=== PATIENT | female | born 1985 | race Two or more races ===

== ENCOUNTER 2023-05-05 20:00 | Inpatient (IN) | payer OTHER ==
[~2023-05-05] VITALS: Ht 154.9 cm; Wt 59.0 kg
[2023-05-05 23:42] LABS: HEMATOCRIT 38.7 % (36.0-45.00); HEMOGLOBIN 13.1 g/dL (12.0-15.00); MEAN CELL VOLUME 92.1 fL (80.00-100.00); MEAN CORPUSCULAR HEMOGLOBIN 31.2 pg (27.00-32.0); MEAN CORPUSCULAR HGB CONC 33.9 g/dl (32.0-36.0); PLATELET COUNT 424 K/uL (150-450); RED CELL DISTRIBUTION WIDTH 13.7 % (11.5-14.5)
[2023-05-06 00:01] LABS: CALCIUM 9.2 mg/dL (8.5-10.1); CREATININE SERUM 0.81 mg/dL (0.55-1.02); GFR 78.31; POTASSIUM 3.06 mEq/L (3.5-5.1)
[2023-05-06 08:22] LABS: INR 1.11; PROTHROMBIN TIME 11.6 SECONDS (9.0-11.5)
[2023-05-07 06:42] LABS: HEMATOCRIT 33.5 % (36.0-45.00); HEMOGLOBIN 11.4 g/dL (12.0-15.00); MEAN CORPUSCULAR HEMOGLOBIN 31.1 pg (27.00-32.0); MEAN CORPUSCULAR HGB CONC 34.1 g/dl (32.0-36.0); PLATELET COUNT 373 K/uL (150-450); RED BLOOD COUNT 3.68 M/uL (4.00-6.00); RED CELL DISTRIBUTION WIDTH 13.6 % (11.5-14.5)
[2023-05-07 07:17] LABS: ALBUMIN 2.8 gm/dL (3.4-5.0); CALCIUM 8.2 mg/dL (8.5-10.1); CREATININE SERUM 0.54 mg/dL (0.55-1.02); GFR 125.04; MAGNESIUM 1.9 mg/dL (1.8-2.4); PHOSPHOROUS 2.6 mg/dL (2.5-4.9); POTASSIUM 4.28 mEq/L (3.5-5.1)
== END 2023-05-07 14:44 | disposition home or self-care (01) | DRG 349 ==
LOC: ER 20:00 → SEC-K 05-06 09:22 → SURG 05-06 09:22
PROVIDERS: General Practice; ADMIT Colon & Rectal Surgery; ATTEND Colon & Rectal Surgery
PROC: BW21Y0Z Computerized Tomography (CT Scan) of Abdomen and Pelvis using Other Contrast, Unenhanced and Enhanced (ICD-10-PCS; 2023-05-06)
PROC: 0D9Q7ZZ Drainage of Anus, Via Natural or Artificial Opening (ICD-10-PCS; principal; 2023-05-06 21:30)
DX: K61.0 Anal abscess (principal); Z20.822 Contact with and (suspected) exposure to COVID-19

== ENCOUNTER 2023-06-25 09:30 | Day surgery (SDC) | payer OTHER ==
[~2023-06-25] VITALS: Ht 154.9 cm; Wt 58.1 kg
== END 2023-06-25 17:45 | disposition home or self-care (01) ==
LOC: CIR.AMB 09:30
PROVIDERS: ATTEND Colon & Rectal Surgery
DX: K60.3 Anal fistula (principal); K59.00 Constipation, unspecified; Z20.822 Contact with and (suspected) exposure to COVID-19

== ENCOUNTER → 2023-09-03 | Day surgery (SDC) | payer OTHER ==
[~2023-09-03] MED LIST: BUPIVACAINE HCL 30 ML VIAL IJ ONE; CEFTRIAXONE SODIUM 2,000 MG VIAL IV ONE; CEFTRIAXONE SODIUM 2,000 MG VIAL ONE; DIBUCAINE 15 GM OINT..GM. TUBE RECTAL ONE; DIBUCAINE 30 GM TUBE ONE; HEMOSTATIC MATRIX 1 KIT KIT TOP ONE; LIDOCAINE HCL 1%/Epi 20ML VIAL IJ ONE; METRONIDAZOLE/SODIUM CHLORIDE 500 MG/100 ML PIGGYBACK IV ONE; POVIDONE-IODINE 118 ML BOTT TOP ONE
== END | disposition home or self-care (01) ==
LOC: ADM 08-20 11:30 → CIR.AMB 07:06
PROVIDERS: ATTEND Colon & Rectal Surgery
DX: K60.3 Anal fistula (principal); K64.8 Other hemorrhoids

== ENCOUNTER 2024-08-21 07:10 | Day surgery (SDC) | payer OTHER ==
[2024-08-11 13:27] VITALS: BP 137/79
[~2024-08-21] VITALS: Ht 152.4 cm; Wt 60.8 kg
[2024-08-21] MEDS ORDERED: POVIDONE-IODINE 118 ML BOTT TOP ONE (11:30)
[2024-08-21] MEDS ORDERED: DIBUCAINE 30 GM TUBE ONE (11:30)
[2024-08-21] MEDS ORDERED: BUPIVACAINE HCL/MPF 0.5% 30ML VIAL ONE (11:30)
[2024-08-21] MEDS ORDERED: HEMOSTATIC MATRIX 1 KIT KIT TOP ONE (11:31)
[2024-08-21] MEDS ORDERED: LIDOCAINE HCL 1%/EPINEPHRINE 20ML VIAL IJ ONE (11:31)
[2024-08-21] MEDS ORDERED: CEFTRIAXONE SODIUM 2,000 MG VIAL ONE (11:37)
[2024-08-21] MEDS ORDERED: METRONIDAZOLE/SODIUM CHLORIDE 500 MG/100 ML PIGGYBACK IV ONE (11:38)
[2024-08-21] MEDS ORDERED: HYDROGEN PEROXIDE 473 ML BOTTLE TOP ONE (11:53)
== END 2024-08-21 16:45 | disposition home or self-care (01) ==
LOC: CIR.AMB 07:10
PROVIDERS: ATTEND Colon & Rectal Surgery
DX: K60.313 Anal fistula, simple, recurrent (principal)

== ENCOUNTER 2024-09-02 10:29 | Inpatient (IN) | payer OTHER ==
[~2024-09-02] VITALS: Ht 157.5 cm; Wt 60.8 kg
--- NOTE | 2024-09-02 10:48 | NUR ---
PTE ALERTA Y ORIENTADA X3, SE JAMES S/V. 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 PTE REFIERE TENER DOLOR EN AREA DONDE FUE OPERADA. SE UBICA EN PASILLO AREA DE OBSERVACION.
[2024-09-02] MEDS ORDERED: KETOROLAC TROMETHAMINE 30 MG VIAL IM ONE (11:45)
[2024-09-02] MEDS ORDERED: KETOROLAC TROMETHAMINE 30 MG VIAL ONE (11:58)
--- NOTE | 2024-09-02 12:11 | NUR ---
PACIENTE ALERTA Y ORIENTADA X3. SE EDUCA A PACIENTE SOBRE ADMINISTRACION DE MEDICAMENTOS, REFIERE ENTENDER. SE EJECUTAN ORDENES BAJO MEDIDAS ASEPTICAS.
[2024-09-02] MEDS ORDERED: TRAMADOL HCL 50 MG TABLET PO ONE (12:45)
--- NOTE | 2024-09-02 13:03 | NUR ---
PACIENTE ALERTA Y ORIENTADA X3. SE EDUCA A PACIENTE SOBRE XENA DE MUESTRAS, CANALIZACION Y ADMINISTRACION DE MEDICAMENTOS, REFIERE ENTENDER. SE EJECUTAN ORDENES BAJO MEDIDAS ASEPTICAS. PENDIENTE A CT.
[2024-09-02 13:28] LABS: HEMOGLOBIN 12.4 g/dL (12.0-15.00); MEAN CELL VOLUME 90.6 fL (80.00-100.00); MEAN CORPUSCULAR HEMOGLOBIN 29.4 pg (27.00-32.0); MEAN CORPUSCULAR HGB CONC 32.5 g/dl (32.0-36.0); PLATELET COUNT 310 K/uL (150-450); RED CELL DISTRIBUTION WIDTH 15.1 % (11.5-14.5)
[2024-09-02 13:43] LABS: CALCIUM 9.3 mg/dL (8.5-10.1); CREATININE SERUM 0.72 mg/dL (0.55-1.02); GFR 89.26; POTASSIUM 4.76 mEq/L (3.5-5.1)
[2024-09-02] MEDS ORDERED: PIPERACILLIN/TAZOBACTAM SODIUM 3.375 GM VIAL IV ONE ×2 (16:00→16:10)
[2024-09-02] MEDS ORDERED: ACETAMINOPHEN 500 MG GEL..CAP PO STA (16:48)
[2024-09-02] MEDS ORDERED: TRAMADOL HCL 50 MG TABLET PO PRN (17:00)
[2024-09-02] MEDS ORDERED: FAMOTIDINE/PF 20 MG/2 ML VIAL IV SCH (17:00)
[2024-09-02] MEDS ORDERED: ACETAMINOPHEN 500 MG GEL..CAP PO ONE (17:11)
[2024-09-02] MEDS ORDERED: 0.9 % SODIUM CHLORIDE 1,000 ML IV SCH ×2 (17:15→17:45)
[2024-09-02] MEDS ORDERED: PIPERACILLIN/TAZOBACTAM SODIUM 3.375 GM in DEXTROSE 5 % IN WATER 100 ML IV SCH (18:00)
[2024-09-02] MEDS ORDERED: ACETAMINOPHEN 500 MG GEL..CAP PO SCH (18:00)
[2024-09-02] MEDS ORDERED: FAMOTIDINE/PF 20 MG/2 ML VIAL ONE (18:51)
[2024-09-02 19:56] LABS: PH,URINE 5.5 (5.0-8.0); URINE APPEARANCE Clear; URINE BILIRRUBIN Negative (NEGATIVE); URINE BLOOD Negative; URINE COLOR Yellow; URINE KETONE Trace (NEGATIVE); URINE LEUKOCYTE Negative; URINE NITRATE Negative; URINE PROTEIN 30 (NEGATIVE); URINE UROBILINOGEN 0.2 E.U./dl
[2024-09-02 20:22] LABS: INR 1.11; PARTIAL THROMBOPLASTIN TIME 31.3 SECONDS (22.0-34.0)
[2024-09-02 20:47] LABS: URINE GLUCOSE 100 MG/DL (NEGATIVE)
[2024-09-02 20:50] LABS: URINE EPITHELIAL CELLS LOADED /HPF; URINE WBC 0-2 /hpf
[2024-09-02 20:51] LABS: URINE BACTERIA FEW; URINE MUCUS SCANT
[2024-09-02 21:00] VITALS: BP 108/69; O2SAT 97
[2024-09-03] VITALS: BP 112/68; O2SAT 100
[2024-09-03 07:28] LABS: CALCIUM 8.4 mg/dL (8.5-10.1); CREATININE SERUM 0.76 mg/dL (0.55-1.02); GFR 83.86; MAGNESIUM 1.7 mg/dL (1.8-2.4); POTASSIUM 3.63 mEq/L (3.5-5.1)
[2024-09-03] MEDS ORDERED: POVIDONE-IODINE 118 ML BOTT TOP ONE ×2 (07:43→08:00)
[2024-09-03] MEDS ORDERED: LIDOCAINE HCL 1%/EPINEPHRINE 20ML VIAL IJ ONE ×2 (07:43→08:00)
[2024-09-03] MEDS ORDERED: BUPIVACAINE HCL/MPF 0.5% 30ML VIAL ONE (07:43)
[2024-09-03] MEDS ORDERED: HYDROGEN PEROXIDE 118 ML SOLUTION TOP ONE (08:00)
[2024-09-03] MEDS ORDERED: BUPIVACAINE HCL 30 ML VIAL IJ ONE (08:00)
[2024-09-03] MEDS ORDERED: HYDROGEN PEROXIDE 473 ML BOTTLE TOP ONE (08:13)
[2024-09-03 08:18] LABS: HEMOGLOBIN 11.3 g/dL (12.0-15.00); MEAN CELL VOLUME 90.4 fL (80.00-100.00); MEAN CORPUSCULAR HGB CONC 33.2 g/dl (32.0-36.0); RED BLOOD COUNT 3.77 M/uL (4.00-6.00)
[2024-09-03 08:24] LABS: PLATELET COUNT 267 K/uL (150-450)
[2024-09-03] MEDS ORDERED: MORPHINE SULFATE 4 MG/ML CARTRIDGE IV PRN (09:00)
[2024-09-03] MEDS ORDERED: TRAMADOL HCL 50 MG TABLET PO PRN (09:01)
[2024-09-03] MEDS ORDERED: ONDANSETRON HCL 4 MG in 0.9 % SODIUM CHLORIDE 50 ML IV PRN (09:15)
[2024-09-03] MEDS ORDERED: MAGNESIUM SULFATE IN WATER 2 GM/50 ML PIGGYBAG IV NR (10:15)
[2024-09-03 11:20] VITALS: BP 109/68; O2SAT 99
[2024-09-03] MEDS ORDERED: NAPH,MB-DB/K PH,MBDB 1 PKT PACKET PO SCH (13:00)
[2024-09-03 16:00] VITALS: BP 103/65; O2SAT 97
[2024-09-03] MEDS ORDERED: ENOXAPARIN SODIUM 40 MG/0.4 ML SYRINGE SUBCUTANEO SCH (17:00)
[2024-09-03] MEDS ORDERED: GABAPENTIN 300 MG CAPSULE PO SCH (17:00)
[2024-09-03] MEDS ORDERED: POLYETHYLENE GLYCOL 3350 17 GM BLIST.PACK PO SCH (17:00)
[2024-09-04 00:15] VITALS: BP 112/70; O2SAT 97
[2024-09-04 07:02] LABS: HEMATOCRIT 32.2 % (36.0-45.00); HEMOGLOBIN 10.7 g/dL (12.0-15.00); MEAN CELL VOLUME 90.3 fL (80.00-100.00); MEAN CORPUSCULAR HEMOGLOBIN 29.9 pg (27.00-32.0); MEAN CORPUSCULAR HGB CONC 33.1 g/dl (32.0-36.0); PLATELET COUNT 247 K/uL (150-450); RED BLOOD COUNT 3.57 M/uL (4.00-6.00); RED CELL DISTRIBUTION WIDTH 15.1 % (11.5-14.5)
[2024-09-04 07:18] LABS: ALBUMIN 2.7 gm/dL (3.4-5.0); CALCIUM 8.1 mg/dL (8.5-10.1); CREATININE SERUM 0.59 mg/dL (0.55-1.02); GFR 112.32; PHOSPHOROUS 3.1 mg/dL (2.5-4.9); POTASSIUM 3.71 mEq/L (3.5-5.1)
[2024-09-04 08:00] VITALS: BP 112/73; O2SAT 99
[2024-09-04] MEDS ORDERED: LACTOBACILLUS ACIDOPHILUS 1 CAP CAP PO SCH (09:00)
[2024-09-04] MEDS ORDERED: ENOXAPARIN SODIUM 40 MG/0.4 ML SYRINGE SUBCUTANEO SCH (17:00)
[2024-09-04 17:42] VITALS: BP 133/83; O2SAT 98
[2024-09-05 00:07] VITALS: BP 123/78; O2SAT 99
[2024-09-05 08:00] VITALS: BP 116/68; O2SAT 97
[2024-09-05] MEDS ORDERED: ZINC OXIDE 30 GM TUBE TOP SCH (09:00)
[2024-09-05] MEDS ORDERED: DIATRIZOATE MEGLUMINE, SODIUM 30 ML BOTTLE PO STA (11:19)
[2024-09-05] MEDS ORDERED: DEXTROSE 5%-WATER 100ML IV.SOLN ONE (11:20)
[2024-09-05 16:00] VITALS: BP 131/82; O2SAT 100
[2024-09-06] VITALS: BP 115/72; O2SAT 100
== END 2024-09-06 09:20 | disposition home or self-care (01) | DRG 346 ==
LOC: ER 10:30 → SURH 18:14
PROVIDERS: Colon & Rectal Surgery; General Practice; ADMIT Internal Medicine; ATTEND Internal Medicine
PROC: BW21YZZ Computerized Tomography (CT Scan) of Abdomen and Pelvis using Other Contrast (ICD-10-PCS; 2024-09-02)
PROC: 0DBQ7ZZ Excision of Anus, Via Natural or Artificial Opening (ICD-10-PCS; 2024-09-03)
PROC: 0D9P7ZZ Drainage of Rectum, Via Natural or Artificial Opening (ICD-10-PCS; principal; 2024-09-03 08:00)
PROC: BW21ZZZ Computerized Tomography (CT Scan) of Abdomen and Pelvis (ICD-10-PCS; 2024-09-05)
DX: K60.321 Anal fistula, complex, initial (principal); Z48.03 Encounter for change or removal of drains; K62.89 Other specified diseases of anus and rectum

== ENCOUNTER 2024-11-03 06:14 | Day surgery (SDC) | payer OTHER ==
[2024-10-27 12:21] VITALS: BP 115/78
[~2024-11-03] VITALS: Ht 157.5 cm; Wt 59.9 kg
[2024-11-03] MEDS ORDERED: POVIDONE-IODINE 118 ML BOTT TOP ONE (10:06)
[2024-11-03] MEDS ORDERED: LIDOCAINE HCL 1%/EPINEPHRINE 20ML VIAL IJ ONE (10:06)
[2024-11-03] MEDS ORDERED: HEMOSTATIC MATRIX 1 KIT KIT TOP ONE (10:06)
[2024-11-03] MEDS ORDERED: DIBUCAINE 30 GM TUBE ONE (10:06)
[2024-11-03] MEDS ORDERED: BUPIVACAINE HCL/MPF 0.5% 30ML VIAL ONE (10:06)
[2024-11-03] MEDS ORDERED: CEFTRIAXONE SODIUM 2,000 MG VIAL ONE (10:07)
[2024-11-03] MEDS ORDERED: METRONIDAZOLE/SODIUM CHLORIDE 500 MG/100 ML PIGGYBACK IV ONE (10:07)
[2024-11-03] MEDS ORDERED: HYDROGEN PEROXIDE 473 ML BOTTLE TOP ONE (11:25)
== END 2024-11-03 13:50 | disposition home or self-care (01) ==
LOC: CIR.AMB 06:14
PROVIDERS: ATTEND Colon & Rectal Surgery
DX: K60.321 Anal fistula, complex, initial (principal); L92.9 Granulomatous disorder of the skin and subcutaneous tissue, unspecified

== ENCOUNTER 2025-01-28 17:43 | Inpatient (IN) | payer OTHER ==
[~2025-01-28] VITALS: Ht 157.5 cm; Wt 58.5 kg
[2025-01-28] MEDS ORDERED: CLINDAMYCIN PHOSPHATE 150 MG/ML (600mg) IV ONE (19:45)
[2025-01-28] MEDS ORDERED: CLINDAMYCIN PHOSPHATE 150 MG/ML (300mg) ONE (20:07)
[2025-01-28 20:39] LABS: BASO % 0.4 % (0.1-1.2); EOS # 0.11 (0.04-0.54); EOS % 1.1 % (0.7-7.0); LYMPH # 1.90 (1.18-3.74); LYMPH % 19.2 % (19.3-53.1); MEAN PLATELET VOLUME 9.60 fl (9.4-12.4); MONO # 0.54 (0.24-0.82); MONO % 5.4 % (4.7-12.5); NEUT # 7.30 (1.56-6.13); NEUT % 73.7 % (34.0-71.1); RED CELL DISTRIBUTION WIDTH 12.6 % (11.6-14.4)
[2025-01-28 21:11] LABS: BUN CREA RATIO 19.0 (7.0-25.0); CREATININE SERUM 0.74 mg/dL (0.55-1.02); GFR 86.49; GLUCOSE FASTING 87.0 mg/dL (65-100); OSMOLALITY SERUM 277.0 MOSM/KG (275-295)
[2025-01-28] MEDS ORDERED: VANCOMYCIN HCL 1,000 MG VIAL IV ONE (23:45)
[2025-01-29] MEDS ORDERED: RINGERS SOLUTION,LACTATED 1,000 ML IV SCH (00:15)
[2025-01-29] MEDS ORDERED: VANCOMYCIN HCL 1,000 MG VIAL ONE ×3 (01:09→23:30)
[2025-01-29 01:10] LABS: INR 1.05
[2025-01-29 01:15] LABS: ALT/SGPT 23.0 U/L (12-78); AST/SGOT 23.0 U/L (15-37); BILIRUBIN TOTAL 0.42 mg/dL (0.3-1.2); BUN CREA RATIO 17.0 (7.0-25.0); CREATININE SERUM 0.72 mg/dL (0.55-1.02); GLOBULINA 4.7 G/DL (2.4-3.5); GLUCOSE FASTING 99.0 mg/dL (65-100); OSMOLALITY SERUM 277.0 MOSM/KG (275-295)
[2025-01-29 01:17] LABS: GFR 89.26
[2025-01-29 01:27] VITALS: BP 128/77; O2SAT 99
[2025-01-29 01:35] LABS: URINE APPEARANCE Clear; URINE BILIRRUBIN Negative (NEGATIVE); URINE BLOOD Negative; URINE COLOR Yellow; URINE GLUCOSE Negative (NEGATIVE); URINE KETONE Negative (NEGATIVE); URINE LEUKOCYTE Negative; URINE NITRATE Negative; URINE PROTEIN Negative (NEGATIVE); URINE UROBILINOGEN 0.2 E.U./dl
[2025-01-29 01:39] LABS: URINE BACTERIA 909.5 uL (0.0-1933); URINE EPITHELIAL CELLS 63.9 uL (0.0-38.8); URINE RBC 3.9 uL (0.0-20.8); URINE WBC 24.9 uL (0.0-23.2)
[2025-01-29 01:40] LABS: URINE CAST 0.14 uL (0.0-1.40)
[2025-01-29 07:46] VITALS: BP 115/66; O2SAT 98
[2025-01-29] MEDS ORDERED: VANCOMYCIN HCL 1,000 MG VIAL IV STA (14:27)
[2025-01-29] MEDS ORDERED: MORPHINE SULFATE 4 MG/ML CARTRIDGE IV PRN (14:30)
[2025-01-29] MEDS ORDERED: ONDANSETRON HCL 2 MG/ML VIAL IV PRN (14:30)
[2025-01-29] MEDS ORDERED: ENOXAPARIN SODIUM 40 MG/0.4 ML SYRINGE SUBCUTANEO SCH (14:52)
[2025-01-29 16:34] VITALS: BP 101/67; BP 99/63; O2SAT 98; O2SAT 99
[2025-01-29] MEDS ORDERED: VANCOMYCIN HCL 1,000 MG VIAL IV SCH (17:00)
[2025-01-29] MEDS ORDERED: FAMOTIDINE/PF 20 MG/2 ML VIAL IV SCH (21:00)
[2025-01-29] MEDS ORDERED: CIPROFLOXACIN IN 5 % DEXTROSE 200 ML IV SCH (21:00)
[2025-01-29] MEDS ORDERED: ACETAMINOPHEN 500 MG GEL..CAP PO PRN (23:45)
[2025-01-30 00:16] VITALS: BP 105/65; O2SAT 98
[2025-01-30 05:58] LABS: BASO % 0.7 % (0.1-1.2); EOS # 0.17 (0.04-0.54); EOS % 2.8 % (0.7-7.0); LYMPH # 2.02 (1.18-3.74); LYMPH % 33.6 % (19.3-53.1); MEAN PLATELET VOLUME 9.50 fl (9.4-12.4); MONO # 0.62 (0.24-0.82); MONO % 10.3 % (4.7-12.5); NEUT # 3.14 (1.56-6.13); NEUT % 52.3 % (34.0-71.1); RED CELL DISTRIBUTION WIDTH 13.0 % (11.6-14.4)
[2025-01-30 07:13] LABS: BUN CREA RATIO 13.0 (7.0-25.0); CREATININE SERUM 0.7 mg/dL (0.55-1.02); GFR 92.21; GLUCOSE FASTING 85.0 mg/dL (65-100); OSMOLALITY SERUM 281.0 MOSM/KG (275-295)
[2025-01-30 08:06] VITALS: BP 109/73; O2SAT 97
[2025-01-30] MEDS ORDERED: LACTOBACILLUS ACIDOPHILUS 1 CAP CAP PO SCH (09:00)
[2025-01-30] MEDS ORDERED: MEROPENEM 500 MG/VIAL VIAL IV SCH (14:00)
[2025-01-30] MEDS ORDERED: VANCOMYCIN HCL 1,000 MG VIAL ONE ×2 (14:37→23:44)
[2025-01-30 17:00] VITALS: BP 116/76; O2SAT 99
[2025-01-31 01:42] VITALS: BP 107/65; O2SAT 99
[2025-01-31 08:00] VITALS: BP 114/78; O2SAT 99
[2025-01-31] MEDS ORDERED: VANCOMYCIN HCL 1,000 MG VIAL ONE ×2 (14:23→16:02)
[2025-01-31] MEDS ORDERED: VANCOMYCIN HCL 5 MG/ML REDILUIDO IV SCH (17:00)
[2025-01-31 18:00] VITALS: BP 109/72; O2SAT 98
[2025-02-01 01:49] VITALS: BP 109/72; O2SAT 100
[2025-02-01 06:45] LABS: BASO % 0.7 % (0.1-1.2); EOS # 0.35 (0.04-0.54); EOS % 5.1 % (0.7-7.0); LYMPH # 2.31 (1.18-3.74); LYMPH % 33.5 % (19.3-53.1); MEAN PLATELET VOLUME 9.60 fl (9.4-12.4); MONO # 0.58 (0.24-0.82); MONO % 8.4 % (4.7-12.5); NEUT # 3.58 (1.56-6.13); NEUT % 51.9 % (34.0-71.1); RED CELL DISTRIBUTION WIDTH 12.6 % (11.6-14.4)
[2025-02-01 07:30] LABS: BUN CREA RATIO 13.0 (7.0-25.0); CREATININE SERUM 0.76 mg/dL (0.55-1.02); GFR 83.86; GLUCOSE FASTING 82.0 mg/dL (65-100); OSMOLALITY SERUM 283.0 MOSM/KG (275-295)
[2025-02-01 08:28] VITALS: BP 114/70; O2SAT 99
[2025-02-01] MEDS ORDERED: CIPROFLOXACIN IN 5 % DEXTROSE 400 MG/200 ML PIGGYBAG IV SCH (17:00)
[2025-02-01 17:32] VITALS: BP 121/81; O2SAT 99
[2025-02-01] MEDS ORDERED: AMPICILLIN SODIUM/SULBACTAM NA 3,000 MG VIAL IV SCH (18:00)
[2025-02-02 01:59] VITALS: BP 123/79; O2SAT 100
[2025-02-02 08:24] VITALS: BP 120/80; O2SAT 100
[2025-02-02 17:50] VITALS: BP 128/81; O2SAT 99
[2025-02-02] MEDS ORDERED: PIPERACILLIN/TAZOBACTAM SODIUM 4.5 GM VIAL IV SCH (21:00)
[2025-02-03 01:21] VITALS: BP 132/79; O2SAT 98
[2025-02-03 08:05] VITALS: BP 119/77; O2SAT 99
[2025-02-03 16:00] VITALS: BP 148/89; O2SAT 99
[2025-02-04 00:15] VITALS: BP 127/73; O2SAT 99
[2025-02-04 07:47] LABS: BASO % 0.8 % (0.1-1.2); EOS # 0.24 (0.04-0.54); EOS % 3.6 % (0.7-7.0); LYMPH # 2.31 (1.18-3.74); LYMPH % 34.9 % (19.3-53.1); MEAN PLATELET VOLUME 9.70 fl (9.4-12.4); MONO # 0.39 (0.24-0.82); MONO % 5.9 % (4.7-12.5); NEUT # 3.63 (1.56-6.13); NEUT % 54.8 % (34.0-71.1); RED CELL DISTRIBUTION WIDTH 12.7 % (11.6-14.4)
[2025-02-04 08:09] LABS: BUN CREA RATIO 15.0 (7.0-25.0); CREATININE SERUM 0.71 mg/dL (0.55-1.02); GFR 90.72; GLUCOSE FASTING 72.0 mg/dL (65-100); OSMOLALITY SERUM 285.0 MOSM/KG (275-295)
[2025-02-04 08:33] VITALS: BP 123/77; O2SAT 99
[2025-02-04] MEDS ORDERED: SODIUM CHLORIDE 0.45 % 1,000 ML IV SCH (09:00)
[2025-02-04 23:57] VITALS: BP 117/76; O2SAT 98
[2025-02-05 08:29] VITALS: BP 123/73; O2SAT 99
[2025-02-05] MEDS ORDERED: TRAMADOL HCL 50 MG TABLET PO STA (15:01)
[2025-02-05] MEDS ORDERED: TRAMADOL HCL 50 MG TABLET PO PRN (15:15)
[2025-02-05 16:00] VITALS: BP 124/68; O2SAT 99
[2025-02-06 01:02] VITALS: BP 101/66; O2SAT 100
[2025-02-06 09:01] VITALS: BP 111/74; O2SAT 99
== END 2025-02-06 13:12 | disposition home or self-care (01) | DRG 394 ==
LOC: ER 17:51 → SURH 01-29 00:10
PROVIDERS: Emergency Medicine; ADMIT Colon & Rectal Surgery; ATTEND Colon & Rectal Surgery
PROC: BW21YZZ Computerized Tomography (CT Scan) of Abdomen and Pelvis using Other Contrast (ICD-10-PCS; principal; 2025-01-28)
PROC: 02HV33Z Insertion of Infusion Device into Superior Vena Cava, Percutaneous Approach (ICD-10-PCS; 2025-02-05)
DX: K61.1 Rectal abscess (principal); L03.90 Cellulitis, unspecified; B96.1 Klebsiella pneumoniae [K. pneumoniae] as the cause of diseases classified elsewhere

== ENCOUNTER 2025-03-24 18:54 | Inpatient (IN) | payer OTHER ==
[~2025-03-24] VITALS: Ht 152.4 cm; Wt 56.7 kg
[2025-03-24] MEDS ORDERED: PIPERACILLIN/TAZOBACTAM SODIUM 3.375 GM in DEXTROSE 5 % IN WATER 100 ML IV SCH (20:24)
[2025-03-24] MEDS ORDERED: 0.9 % SODIUM CHLORIDE 1,000 ML IV SCH (20:30)
[2025-03-24] MEDS ORDERED: KETOROLAC TROMETHAMINE 30 MG VIAL IU ONE (20:30)
[2025-03-24] MEDS ORDERED: FAMOtidine 10 MG/ML (4ML VIAL) IV PUSH ONE (20:30)
[2025-03-24] MEDS ORDERED: ACETAMINOPHEN 500 MG GEL..CAP PO ONE (20:30)
[2025-03-24 21:08] LABS: BASO % 0.6 % (0.1-1.2); EOS # 0.13 (0.04-0.54); EOS % 1.7 % (0.7-7.0); LYMPH # 1.86 (1.18-3.74); LYMPH % 23.9 % (19.3-53.1); MEAN PLATELET VOLUME 9.20 fl (9.4-12.4); MONO # 0.58 (0.24-0.82); MONO % 7.5 % (4.7-12.5); NEUT # 5.13 (1.56-6.13); NEUT % 66.0 % (34.0-71.1); RED CELL DISTRIBUTION WIDTH 12.9 % (11.6-14.4)
[2025-03-24 21:27] LABS: INR 1.08
[2025-03-24 21:50] LABS: ERYTHROCYTE SEDIMENTATION RATE 16 mm/hr (0-20)
[2025-03-24 22:34] LABS: URINE APPEARANCE Clear; URINE BILIRRUBIN Negative (NEGATIVE); URINE BLOOD Negative; URINE COLOR Yellow; URINE GLUCOSE Negative (NEGATIVE); URINE KETONE Negative (NEGATIVE); URINE LEUKOCYTE Negative; URINE NITRATE Negative; URINE PROTEIN Negative (NEGATIVE); URINE UROBILINOGEN 0.2 E.U./dl
[2025-03-24 22:37] LABS: URINE BACTERIA 7.1 uL (0.0-1933); URINE EPITHELIAL CELLS 6.2 uL (0.0-38.8); URINE WBC 1.9 uL (0.0-23.2)
[2025-03-24 22:50] LABS: URINE CAST 0.29 uL (0.0-1.40); URINE RBC 1.7 uL (0.0-20.8)
[2025-03-24 23:14] LABS: ALT/SGPT 20 U/L (12-78); AST/SGOT 15 U/L (15-37); BILIRUBIN TOTAL 0.26 mg/dL (0.3-1.2); BUN CREA RATIO 23 (7.0-25.0); CREATININE SERUM 0.75 mg/dL (0.55-1.02); GFR 84.74; GLOBULINA 3.5 G/DL (2.4-3.5); GLUCOSE FASTING 93 mg/dL (65-100); HCG QUANTITATIVE < 1 mUI/mL (1-3); OSMOLALITY SERUM 284 MOSM/KG (275-295)
[2025-03-24] MEDS ORDERED: KETOROLAC TROMETHAMINE 30 MG VIAL IU PRN (23:45)
[2025-03-24] MEDS ORDERED: ACETAMINOPHEN 325 MG TABLET PO PRN (23:45)
[2025-03-24] MEDS ORDERED: ONDANSETRON HCL 4 MG in 0.9 % SODIUM CHLORIDE 50 ML IV PRN (23:45)
[2025-03-25 04:10] VITALS: BP 122/77; O2SAT 99
[2025-03-25] MEDS ORDERED: PIPERACILLIN/TAZOBACTAM SODIUM 3.375 GM in 0.9 % SODIUM CHLORIDE 100 ML IV SCH (06:00)
[2025-03-25 07:30] VITALS: BP 107/68; O2SAT 99
[2025-03-25] MEDS ORDERED: ACETAMINOPHEN 500 MG GEL..CAP PO PRN (09:15)
[2025-03-25] MEDS ORDERED: FAMOTIDINE/PF 20 MG/2 ML VIAL IV SCH (12:00)
[2025-03-25 16:00] VITALS: BP 127/77; O2SAT 99
[2025-03-25] MEDS ORDERED: ONDANSETRON HCL 2 MG/ML VIAL IV PRN (17:00)
[2025-03-25] MEDS ORDERED: RINGERS SOLUTION,LACTATED 1,000 ML IV SCH (17:00)
[2025-03-25] MEDS ORDERED: MORPHINE SULFATE 4 MG/ML CARTRIDGE IV PRN (17:00)
[2025-03-25] MEDS ORDERED: TRAMADOL HCL 50 MG TABLET PO PRN (19:30)
[2025-03-26 00:30] VITALS: BP 117/70; O2SAT 99
[2025-03-26 06:28] LABS: BASO % 0.9 % (0.1-1.2); EOS # 0.18 (0.04-0.54); EOS % 3.3 % (0.7-7.0); LYMPH # 1.93 (1.18-3.74); LYMPH % 35.0 % (19.3-53.1); MEAN PLATELET VOLUME 9.50 fl (9.4-12.4); MONO # 0.39 (0.24-0.82); MONO % 7.1 % (4.7-12.5); NEUT # 2.95 (1.56-6.13); NEUT % 53.5 % (34.0-71.1); RED CELL DISTRIBUTION WIDTH 13.1 % (11.6-14.4)
[2025-03-26 06:52] LABS: BUN CREA RATIO 18.0 (7.0-25.0); CREATININE SERUM 0.68 mg/dL (0.55-1.02); GFR 94.89; GLUCOSE FASTING 82.0 mg/dL (65-100); OSMOLALITY SERUM 286.0 MOSM/KG (275-295)
[2025-03-26] MEDS ORDERED: LACTOBACILLUS ACIDOPHILUS 1 CAP CAP PO SCH ×2 (09:00→17:00)
[2025-03-26 09:14] VITALS: BP 127/78; O2SAT 99
[2025-03-26 17:27] VITALS: BP 129/80; O2SAT 100
[2025-03-27 00:30] VITALS: BP 115/75; O2SAT 100
[2025-03-27 08:19] VITALS: BP 115/68; O2SAT 99
[2025-03-27] MEDS ORDERED: ENOXAPARIN SODIUM 40 MG/0.4 ML SYRINGE SUBCUTANEO SCH (09:00)
[2025-03-27 16:58] VITALS: BP 120/81; O2SAT 99
[2025-03-28] VITALS: BP 118/74; O2SAT 98
[2025-03-28 06:27] LABS: BASO % 0.5 % (0.1-1.2); EOS # 0.30 (0.04-0.54); EOS % 4.7 % (0.7-7.0); LYMPH # 2.29 (1.18-3.74); LYMPH % 35.5 % (19.3-53.1); MEAN PLATELET VOLUME 9.60 fl (9.4-12.4); MONO # 0.46 (0.24-0.82); MONO % 7.1 % (4.7-12.5); NEUT # 3.35 (1.56-6.13); NEUT % 51.9 % (34.0-71.1); RED CELL DISTRIBUTION WIDTH 13.1 % (11.6-14.4)
[2025-03-28 06:36] LABS: BUN CREA RATIO 13.0 (7.0-25.0); CREATININE SERUM 0.78 mg/dL (0.55-1.02); GFR 80.99; GLUCOSE FASTING 77.0 mg/dL (65-100); OSMOLALITY SERUM 285.0 MOSM/KG (275-295)
[2025-03-28 08:18] VITALS: BP 129/84; O2SAT 99
[2025-03-28] MEDS ORDERED: MAGNESIUM CHLORIDE 70 MG TABLET.DR PO NR (10:30)
[2025-03-28] MEDS ORDERED: VANCOMYCIN HCL 1,000 MG VIAL IV SCH (21:00)
[2025-03-29 00:30] VITALS: BP 134/88; O2SAT 99
[2025-03-29 07:44] VITALS: BP 135/82; O2SAT 99
[2025-03-29 16:00] VITALS: BP 133/83; O2SAT 97
[2025-03-29] MEDS ORDERED: VANCOMYCIN HCL 1,000 MG VIAL IV STA (18:41)
[2025-03-29] MEDS ORDERED: VANCOMYCIN HCL 1,000 MG VIAL IV SCH (21:00)
[2025-03-30] VITALS: BP 126/72; O2SAT 98
[2025-03-30 08:05] VITALS: BP 120/73; O2SAT 98
[2025-03-30] MEDS ORDERED: LIDOCAINE HCL 1%/EPINEPHRINE 20ML VIAL IJ ONE (12:25)
[2025-03-30] MEDS ORDERED: DIBUCAINE 30 GM TUBE ONE (12:25)
[2025-03-30] MEDS ORDERED: HEMOSTATIC MATRIX 1 KIT KIT TOP ONE (12:25)
[2025-03-30] MEDS ORDERED: BUPIVACAINE HCL/MPF 0.5% 30ML VIAL ONE (12:25)
[2025-03-30] MEDS ORDERED: POVIDONE-IODINE 118 ML BOTT TOP ONE (12:25)
[2025-03-30] MEDS ORDERED: PIPERACILLIN/TAZOBACTAM SODIUM 3.375 GM VIAL IV ONE (12:33)
[2025-03-30] MEDS ORDERED: VANCOMYCIN HCL 1,000 MG VIAL ONE (14:45)
[2025-03-30 17:00] VITALS: BP 128/81; O2SAT 100
[2025-03-30] MEDS ORDERED: GABAPENTIN 300 MG CAPSULE PO STA (21:13)
[2025-03-30] MEDS ORDERED: TRAMADOL HCL 50 MG TABLET PO PRN (21:15)
[2025-03-31 00:10] VITALS: BP 116/75; O2SAT 98
[2025-03-31] MEDS ORDERED: VANCOMYCIN HCL 1,000 MG VIAL ONE ×2 (06:20→14:38)
[2025-03-31 08:04] LABS: BUN CREA RATIO 10.0 (7.0-25.0); CREATININE SERUM 0.8 mg/dL (0.55-1.02); GFR 78.66; GLUCOSE FASTING 75.0 mg/dL (65-100); OSMOLALITY SERUM 288.0 MOSM/KG (275-295)
[2025-03-31 08:17] LABS: BASO % 0.6 % (0.1-1.2); EOS # 0.28 (0.04-0.54); EOS % 5.2 % (0.7-7.0); LYMPH # 1.76 (1.18-3.74); LYMPH % 32.5 % (19.3-53.1); MEAN PLATELET VOLUME 9.40 fl (9.4-12.4); MONO # 0.40 (0.24-0.82); MONO % 7.4 % (4.7-12.5); NEUT # 2.93 (1.56-6.13); NEUT % 54.1 % (34.0-71.1); RED CELL DISTRIBUTION WIDTH 13.4 % (11.6-14.4)
[2025-03-31] MEDS ORDERED: GABAPENTIN 300 MG CAPSULE PO SCH (09:00)
[2025-03-31 09:14] VITALS: BP 132/82; O2SAT 98
[2025-03-31] MEDS ORDERED: ACETAMINOPHEN 500 MG GEL..CAP PO STA (14:05)
[2025-03-31] MEDS ORDERED: ACETAMINOPHEN 500 MG GEL..CAP PO SCH (14:06)
[2025-03-31 19:31] VITALS: BP 112/68; O2SAT 98
[2025-03-31 19:34] VITALS: BP 140/85; O2SAT 100
[2025-03-31] MEDS ORDERED: ENOXAPARIN SODIUM 40 MG/0.4 ML SYRINGE SUBCUTANEO SCH (21:00)
[2025-04-01 00:14] VITALS: BP 118/73; O2SAT 99
[2025-04-01] MEDS ORDERED: VANCOMYCIN HCL 1,000 MG VIAL ONE ×2 (06:16→14:21)
[2025-04-01 08:21] VITALS: BP 124/84; O2SAT 99
[2025-04-01 16:15] VITALS: BP 145/84; O2SAT 99
[2025-04-02 00:52] VITALS: BP 109/72; O2SAT 100
[2025-04-02 06:36] LABS: BASO % 0.8 % (0.1-1.2); EOS # 0.20 (0.04-0.54); EOS % 3.3 % (0.7-7.0); LYMPH # 2.11 (1.18-3.74); LYMPH % 34.7 % (19.3-53.1); MEAN PLATELET VOLUME 9.40 fl (9.4-12.4); MONO # 0.44 (0.24-0.82); MONO % 7.2 % (4.7-12.5); NEUT # 3.26 (1.56-6.13); NEUT % 53.7 % (34.0-71.1); RED CELL DISTRIBUTION WIDTH 13.3 % (11.6-14.4)
[2025-04-02] MEDS ORDERED: VANCOMYCIN HCL 1,000 MG VIAL ONE ×2 (07:01→15:20)
[2025-04-02 07:08] LABS: ALT/SGPT 27 U/L (12-78); AST/SGOT 15 U/L (15-37); BILIRUBIN TOTAL 0.36 mg/dL (0.3-1.2); BUN CREA RATIO 14 (7.0-25.0); CREATININE SERUM 0.79 mg/dL (0.55-1.02); GFR 79.81; GLOBULINA 3.3 G/DL (2.4-3.5); GLUCOSE FASTING 74 mg/dL (65-100); OSMOLALITY SERUM 285 MOSM/KG (275-295)
[2025-04-02] MEDS ORDERED: TRAMADOL HCL 50 MG TABLET PO STA (12:46)
== END 2025-04-02 17:53 | disposition home or self-care (01) | DRG 349 ==
LOC: ER 18:54 → SURG 03-25 01:02
PROVIDERS: General Practice; Internal Medicine Infectious Disease; ADMIT Colon & Rectal Surgery; ATTEND Colon & Rectal Surgery
PROC: 02HV33Z Insertion of Infusion Device into Superior Vena Cava, Percutaneous Approach (ICD-10-PCS; 2025-03-27)
PROC: 0JBB0ZZ Excision of Perineum Subcutaneous Tissue and Fascia, Open Approach (ICD-10-PCS; 2025-03-30)
PROC: 0DBQ7ZZ Excision of Anus, Via Natural or Artificial Opening (ICD-10-PCS; principal; 2025-03-30 13:15)
DX: K60.323 Anal fistula, complex, recurrent (principal); F43.20 Adjustment disorder, unspecified